=== PATIENT | female | born 1985 | race Asian ===

== ENCOUNTER 2018-05-17 11:27 | Emergency (ER) | payer OTHER ==
[~2018-05-17] VITALS: Ht 152.4 cm; Wt 95.3 kg
[2018-05-17 12:57] VITALS: BP 154/80; TEMP 98.7
== END 2018-05-17 12:57 | disposition home or self-care (01) ==
LOC: ED 11:27
DX: M54.9 Dorsalgia, unspecified (principal); M54.2 Cervicalgia; R51 Headache; V59.40XA Driver of pick-up truck or van injured in collision with unspecified motor vehicles in traffic accident, initial encounter
CPT/HCPCS: 99283

== ENCOUNTER 2018-07-06 19:57 | Emergency (ER) | payer OTHER ==
[~2018-07-06] VITALS: Ht 152.4 cm; Wt 104.3 kg
[2018-07-06 20:12] VITALS: TEMP 98.1
[2018-07-06 20:50] LABS: PLATELET COUNT 298 K/uL (152-353)
[2018-07-06 21:41] LABS: POTASSIUM 3.5 mmol/L (3.6-5.2)
[2018-07-06 22:57] VITALS: BP 134/80
== END 2018-07-06 23:01 | disposition home or self-care (01) ==
LOC: ED 19:57
PROVIDERS: Internal Medicine
DX: R07.89 Other chest pain (principal); R11.2 Nausea with vomiting, unspecified; R19.7 Diarrhea, unspecified; E87.6 Hypokalemia; R10.13 Epigastric pain; R00.0 Tachycardia, unspecified
CPT/HCPCS: 36415; 80053; 82150; 82550; 83690; 84484; 85027; 93005; 99283

== ENCOUNTER 2019-11-16 10:54 | Emergency (ER) | payer BC ==
[~2019-11-16] VITALS: Ht 152.4 cm; Wt 104.3 kg
[2019-11-16 11:05] VITALS: TEMP 97.7
[2019-11-16 12:17] LABS: PLATELET COUNT 289 K/uL (152-353)
[2019-11-16 12:29] LABS: POTASSIUM 3.6 mmol/L (3.6-5.2)
[2019-11-16 14:46] VITALS: BP 140/90
== END 2019-11-16 14:49 | disposition home or self-care (01) ==
LOC: ED 10:54
PROVIDERS: Emergency Medicine
DX: K21.9 Gastro-esophageal reflux disease without esophagitis (principal); K52.89 Other specified noninfective gastroenteritis and colitis; R10.84 Generalized abdominal pain
CPT/HCPCS: 80053; 81000; 81025; 82150; 83690; 85027; 99284; Q9963

== ENCOUNTER 2020-03-09 12:42 | Outpatient (CLI) | payer BC | END 2020-03-09 22:39 | disposition home or self-care (01) | LOC: MRI 12:42 | DX: D25.9 Leiomyoma of uterus, unspecified (principal); R19.09 Other intra-abdominal and pelvic swelling, mass and lump | CPT/HCPCS: A9576 ==

== ENCOUNTER 2021-05-07 12:28 | Emergency (ER) | payer BC ==
[~2021-05-07] VITALS: Ht 152.4 cm; Wt 104.3 kg
[2021-05-07 12:36] VITALS: TEMP 98.9
[2021-05-07 13:34] LABS: PLATELET COUNT 296 K/uL (152-353)
[2021-05-07 13:38] LABS: POTASSIUM 3.7 mmol/L (3.6-5.2)
[2021-05-07 15:41] VITALS: BP 116/78
== END 2021-05-07 15:41 | disposition home or self-care (01) ==
LOC: ED 12:28
PROVIDERS: Hospitalist
DX: K29.60 Other gastritis without bleeding (principal); K21.9 Gastro-esophageal reflux disease without esophagitis; R10.84 Generalized abdominal pain
CPT/HCPCS: 80053; 81000; 81025; 83690; 85027; 96374; 96375; 99284; J2405; J3490

== ENCOUNTER 2023-03-12 14:32 | Emergency (ER) | payer OTHER ==
[~2023-03-12] VITALS: Ht 152.4 cm; Wt 104.8 kg
[2023-03-12 16:02] VITALS: BP 148/99; TEMP 98.3
== END 2023-03-12 16:02 | disposition home or self-care (01) ==
LOC: ED 14:32
DX: J02.0 Streptococcal pharyngitis (principal); B34.9 Viral infection, unspecified
CPT/HCPCS: 81025; 87635; 87651; 99283; U0003